=== PATIENT | female | born 1955 | race African-American/Black ===

== ENCOUNTER 2016-11-11 04:41 | Emergency (ER) | payer OTHER ==
[~2016-11-11] VITALS: Ht 172.7 cm; Wt 59.0 kg
--- NOTE | 2016-11-11 04:32 | Emergency Room Report ---
History of Present Illness General Source: Patient, EMS Present Illness HPI 61YOF flagged down EMS on street, hearing loud buzzing in her ears and "I smell people." Denies SI, denies voices telling her to hurt herself, others Known schizophrenic. Compliant with Zyprexa 10mg, took today. Endorses cocaine ?in the past ?currently History of HTN Allergies: Coded Allergies: No Known Allergies (Unverified , 11/11/16) Patient History Past Medical History: schizophrenia, HTN Past Surgical History: none Family History: none Social History: drug use, unable to obtain Now: No Immunizations: UTD Reviewed Nursing Documentation: PMH: Agreed, PSxH: Agreed Review of Systems All Other Systems: negative except mentioned in HPI Physical Exam Sp02 EP Interpretation: reviewed, normal General Appearance: normal inspection, alert/responsive, no apparent distress, GCS 15, non-toxic, other - Curled up under sheets on stretcher, keeps falling asleep. Uninterested in providing meaningful HPI at this ubaldo Head: normocephalic, atraumatic Eyes: normal eye exam, PERRL, EOMI ENT: normal ENT inspection, TMs + canals normal, hearing intact, nasal exam normal Neck: normal inspection, supple/symm/no masses Respiratory: normal inspection, effort normal, no rhonchi, no wheezing, no retractions, palpation of chest normal, chest symmetrical, percussion normal Cardiovascular: normal inspection, regular rate, rhythm, no murmur, gallop, rub , no edema Gastrointestinal: non-tender, no mass, non-distended, no rebound/guarding, normal bowel sounds Musculoskeletal: gait & station normal, strength & tone normal, normal ROM, non -tender Neurologic: CN II-XII intact, oriented x3, sensory intact, normal speech Psychiatric: normal inspection, judgment & insight normal Skin: normal inspection, no rash Lymphatic: normal inspection Medical Decision Making Diagnostic Impression: Primary Impression: Auditory hallucinations Additional Impression: HTN (hypertension) Qualified Codes: I10 - Essential (primary) hypertension ER Course 61YOF with auditory hallucinations, non commanding. No SI, HI VS with elevated BP, known history of HTN Refusing to give urine for Utox Not a danger to herself or others at this time No acute need for labs, psych cx or hospitalization. Not on 5150 hold Compliant with Zyprexa, has enough meds on her - no need for additional psychotropic, sedation at this time Allowed to sleep in ED Given sandwich DC in am Status: improved Disposition: HOME, SELF-CARE BOLIVAR CHAN M.D. Nov 11, 2016 04:32
[2016-11-11] MEDS ORDERED: ZYPREXA10 MG ORAL (04:49)
[2016-11-11] MEDS ORDERED: CLINDAMYCIN HC150 MG ORAL (04:49)
[2016-11-11 04:50] VITALS: BP 140/84
[2016-11-11 06:10] VITALS: BP 136/82
== END 2016-11-11 06:10 | disposition home or self-care (01) ==
LOC: EDBD 04:41 → EMR 06:10
DX: R44.0 Auditory hallucinations (principal); I10 Essential (primary) hypertension; F20.9 Schizophrenia, unspecified
CPT/HCPCS: 99282

== ENCOUNTER 2018-01-25 15:15 | Emergency (ER) | payer MEDICAID, OTHER ==
[~2018-01-25] VITALS: Ht 172.7 cm; Wt 51.7 kg
[~2018-01-25 15:15] MED LIST: CLINDAMYCIN HC150 MG ORAL; ZYPREXA10 MG ORAL
[2018-01-25] MEDS ORDERED: AMLODIPINE BESY10 MG ORAL ×2 (15:27→16:43)
[2018-01-25 15:30] VITALS: BP 174/82
--- NOTE | 2018-01-25 15:52 | Emergency Room Report ---
History of Present Illness General Chief Complaint: Back Pain-No Injury Source: Patient Present Illness HPI 63 YO Female presents for her back pain that she rates as 10/10 in severity. pt. states she does not need evaluation of her abdominal pain as it has been going on for awhile,she just wants to make us aware of any other ongoing issues. . She recently completed abx for cellulitis or RLE on the 10th of this month. pt reports being homeless and sleeping in her car which she attributes to the cause of her back pain. pt. describes tightness and spasming of the muscles in the right side of her back. she reports having a hx of HTN and requires refill of her Amlodipine. pt. reports that she is a previous cocaine user. Pt. states that she has been taking [place] 5mg for her pain. Pt. denies trauma or fall. states had recent CT done at [facility]. Denies fevers, chills , dysuria, urinary frequency or hematuria. Denies incontinence, paresthesias, sciatica, or weakness. Denies recent spinal procedures. Allergies: Coded Allergies: No Known Allergies (Unverified , 11/11/16) Patient History Past Medical History: see triage record Past Surgical History: none Pertinent Family History: none Last Menstrual Period: 11 yrs ago Now: No Reviewed Nursing Documentation: PMH: Agreed; PSxH: Agreed Nursing Documentation-PMH Hx Cardiac Problems: Yes - Heart Palpitations Hx Hypertension: Yes Review of Systems All Other Systems: negative except mentioned in HPI Physical Exam Vital Signs Date Time Temp Pulse Resp B/P (MAP) Pulse Ox O2 Delivery O2 Flow Rate FiO2 01/25/18 15:24 97.9 60 18 174/82 99 Room Air Sp02 EP Interpretation: reviewed, normal General Appearance: no apparent distress, alert, GCS 15, non-toxic Head: normocephalic, atraumatic Eyes: bilateral eye normal inspection, bilateral eye PERRL ENT: hearing grossly normal, normal voice Neck: full range of motion Respiratory: lungs clear, normal breath sounds, no wheezing, speaking full sentences Cardiovascular #1: regular rate, rhythm Gastrointestinal: normal bowel sounds, non tender, soft Rectal: deferred Genitourinary: normal inspection, no CVA tenderness Musculoskeletal: back normal, gait/station normal, normal range of motion, tender - Mild Tenderness to palpation to right sided paraspinal muscles of the lower back without midline tenderness. Neurologic: alert, oriented x3, responsive, motor strength/tone normal, sensory intact, speech normal, grossly normal Psychiatric: judgement/insight normal Skin: normal color, no rash, warm/dry, well hydrated Medical Decision Making PA Attestation Dr. Zuleta is my supervising Physician whom patient management has been discussed with. Diagnostic Impression: Primary Impression: Right-sided back pain Qualified Codes: M54.5 - Low back pain ER Course 63 YO Female presents for her back pain that she rates as 10/10 in severity. pt. states she does not need evaluation of her abdominal pain as it has been going on for awhile,she just wants to make us aware of any other ongoing issues. . She recently completed abx for cellulitis or RLE on the of this month. pt reports being homeless and sleeping in her car which she attributes to the cause of her back pain. pt. describes tightness and spasming of the muscles in the right side of her back. she reports having a hx of HTN and requires refill of her Amlodipine. pt. reports that she is a previous cocaine user. Pt. states that she has been taking [place] 5mg for her pain. Pt. denies trauma or fall. states had recent CT done at [facility]. Denies fevers, chills , dysuria, urinary frequency or hematuria. Denies incontinence, paresthesias, sciatica, or weakness. Denies recent spinal procedures. Ddx considered: epidural abscess, fracture, sprain/strain, meningitis, spinal chord injury, sciatica, cauda equina, spinal abscess, Pyelonephritis, renal calculi just to name a few. Vital signs reviewed and are WNL during ED visit. Pt. is afebrile with no signs of infection No new symptoms, and denies recent trauma. No saddle anesthesia noted, Pt. denies incontinence Neurovascular is intact ROM is limited due to pain * Mild Tenderness to palpation to right sided paraspinal muscles of the lower back without midline tenderness. Ambulatory with a normal gait. *Pt. describes pain today as moderate and radiates across the lower back. ORDERS: none warranted at this time. NO new symptoms and no specific bony ttp. INTERVENTIONS: - Robaxin PO -Amlodipine PO D/W Pt. that for further pain management is it recommended to consult PCP or a Chronic Pain management doctor. A provider who can safely prescribe controlled substances with close follow up. DISCHARGE: At this time pt. is stable for d/c to home. Will provide printed patient care instructions, and any necessary prescriptions. Care plan and follow up instructions have been discussed with the patient prior to discharge. Last Vital Signs Date Time Temp Pulse Resp B/P (MAP) Pulse Ox O2 Delivery O2 Flow Rate FiO2 01/25/18 15:30 97.9 60 18 174/82 99 Room Air Disposition: HOME, SELF-CARE Condition: Stable Scripts Amlodipine Besylate* (AMLODIPINE BESYLATE*) 10 Mg Tablet 10 MG ORAL DAILY, #30 TAB Prov: Francesca Pena 01/25/18 Methocarbamol* (ROBAXIN-750*) 750 Mg Tablet 750 MG PO TID, #21 TAB 0 Refills Prov: Francesca Pena 01/25/18 Patient Instructions: Back Pain, Adult Additional Instructions: Take medications as directed. Follow up with a Primary Care Provider in 3-5 days, even if your symptoms have resolved. --Please review list of primary care clinics, if you do not already have a primary care provider Return sooner to ED if new symptoms occur, or current symptoms become worse. Do not drink alcohol, drive, or operate heavy machinery while taking Robaxin ( Muscle Relaxers) as this may cause drowsiness. - Please note that this Emergency Department Report was dictated using Pertinoalgorithm developer technology software, occasionally this can lead to erroneous entry secondary to interpretation by the dictation equipment. Francesca Pena Jan 25, 2018 15:52
[2018-01-25] MEDS ORDERED: Methocarbamol 500mg tab ORAL ONE (16:00)
[2018-01-25] MEDS ORDERED: ROBAXIN-750750 MG PO (16:43)
[2018-01-25 17:01] VITALS: BP 174/82
== END 2018-01-25 17:01 | disposition home or self-care (01) ==
LOC: EMR 15:57
DX: M54.5 Low back pain (principal); I10 Essential (primary) hypertension
CPT/HCPCS: 99282